=== PATIENT | male | born 1945 | race Caucasian/White ===

== ENCOUNTER 2017-11-29 09:35 | Emergency (ER) | payer OTHER ==
[~2017-11-29] VITALS: Ht 182.9 cm; Wt 116.0 kg
[2017-11-29 09:51] VITALS: BP 127/57; PULSE 54; RESP 18; TEMP 99; O2SAT 96
--- NOTE | 2017-11-29 11:15 | PD ---
HPI Chief Complaint: Edema Time Seen by Provider: 10:41 Travel History International Travel<30 days: No Contact w/Intl Traveler<30days: No Traveled to known affect area: No History of Present Illness HPI 72-year-old man, presents emerged parenchyma of left leg swelling. Started today. Not really tender. He has had trouble with edema in the past. States he was a little bit noncompliant with salt. He does have a history of PE following spine surgery several years ago. No other DVT or PE history. Went to the [place] and got sent to us for further evaluation. Otherwise had been feeling generally well and healthy. No shortness of breath or chest pain. He went to the pool and did a lot of leg exercises yesterday but that is common for him. No injuries. No other complaints. History Past Medical History Narrative Medical Cataracts Depression Sleep apnea CAD Diabetes Obesity Spinal stenosis/cervical spondylosis/osteoarthritis Essential hypertension Dyslipidemia Kidney stones Hearing loss Hypothyroidism History of PE in the past following surgery Chronic pain Social History Tobacco Use: No Review of Systems Except as stated in HPI: all other systems reviewed are Neg Physical Exam Narrative GENERAL: Well-appearing 9-year-old man, no acute distress. SKIN: Focused skin assessment warm/dry. HEAD: Atraumatic. Normocephalic. EYES: Pupils equal and round. No scleral icterus. No injection or drainage. ENT: No nasal bleeding or discharge. Mucous membranes pink and moist. NECK: Trachea midline. No JVD. CARDIOVASCULAR: Regular rate and rhythm. No murmur appreciated. RESPIRATORY: No accessory muscle use. Clear to auscultation. Breath sounds equal bilaterally. GASTROINTESTINAL: Abdomen soft, non-tender, nondistended. Hepatic and splenic margins not palpable. MUSCULOSKELETAL: Asymmetric edema and swelling of the left lower extremity involving the calf and ankle and foot. Sluggish capillary refill bilaterally. Pulses are difficult to palpate bilaterally, but present. There is no real calf tenderness. Knee exams are normal. NEUROLOGICAL: Awake and alert. No obvious cranial nerve deficits. Motor grossly within normal limits. Normal speech. PSYCHIATRIC: Appropriate mood and affect; insight and judgment normal. Data Data Last Documented VS Vital Signs Date Time Temp Pulse Resp B/P (MAP) Pulse Ox O2 Delivery O2 Flow Rate FiO2 11/29/17 11:25 100 Room Air 11/29/17 09:51 99.0 54 18 127/57 (80) Orders Orders Complete Blood Count With Diff (11/29/17 10:50) Comprehensive Metabolic Panel (11/29/17 10:50) Act Partial Throm Time (Ptt) (11/29/17 10:50) Prothrombin Time / Inr (Pt) (11/29/17 10:50) Iv Access Insert/Monitor (11/29/17 10:50) Chest, Pa & Lat (11/29/17 ) Us Leg Venous Doppler (11/29/17 ) Labs Laboratory Tests Test 11/29/17 11:25 White Blood Count 11.4 TH/MM3 Red Blood Count 4.57 MIL/MM3 Hemoglobin 14.1 GM/DL Hematocrit 40.9 % Mean Corpuscular Volume 89.5 FL Mean Corpuscular Hemoglobin 30.7 PG Mean Corpuscular Hemoglobin Concent 34.3 % Red Cell Distribution Width 14.4 % Platelet Count 291 TH/MM3 Mean Platelet Volume 8.8 FL Neutrophils (%) (Auto) 60.9 % Lymphocytes (%) (Auto) 28.5 % Monocytes (%) (Auto) 6.6 % Eosinophils (%) (Auto) 3.3 % Basophils (%) (Auto) 0.7 % Neutrophils # (Auto) 6.9 TH/MM3 Lymphocytes # (Auto) 3.2 TH/MM3 Monocytes # (Auto) 0.7 TH/MM3 Eosinophils # (Auto) 0.4 TH/MM3 Basophils # (Auto) 0.1 TH/MM3 CBC Comment DIFF FINAL Differential Comment Prothrombin Time 10.2 SEC Prothromb Time International Ratio 1.0 RATIO Activated Partial Thromboplast Time 27.8 SEC Blood Urea Nitrogen 18 MG/DL Creatinine 1.12 MG/DL Random Glucose 60 MG/DL Total Protein 7.8 GM/DL Albumin 3.7 GM/DL Calcium Level 9.3 MG/DL Alkaline Phosphatase 126 U/L Aspartate Amino Transf (AST/SGOT) 38 U/L Alanine Aminotransferase (ALT/SGPT) 40 U/L Total Bilirubin 0.5 MG/DL Sodium Level 142 MEQ/L Potassium Level 4.0 MEQ/L Chloride Level 104 MEQ/L Carbon Dioxide Level 29.5 MEQ/L Anion Gap 9 MEQ/L Estimat Glomerular Filtration Rate 65 ML/MIN MDM Medical Decision Making Medical Screen Exam Complete: Yes Emergency Medical Condition: Yes Differential Diagnosis DVT, CHF, leg injury, other Narrative Course Medical decision making INITIAL: Is a 9-year-old male presents emergency department complaining of left lower extremity swelling. Possible DVT. History of PE in the past. Possibly asymmetric edema. He did have vein harvest in that leg for previous bypass. Will check labs, chest x-ray, ultrasound. Umair Jimenez MD November 29, 2017 11:15
--- NOTE | 2017-11-29 11:17 | RADRPT ---
EXAM DATE: 11/29/2017 11:14 AM EDT AGE/SEX: 72 years / Male INDICATIONS: Short of breath. CLINICAL DATA: This is the patient's initial encounter. Patient reports that signs and symptoms have been present for 1 day and indicates a pain score of 0/10. MEDICAL/SURGICAL HISTORY: Hypertension. Diabetes mellitus type II. CABG. COMPARISON: No prior [facility] exams available for comparison. FINDINGS: Postsurgical features of prior median sternotomy. No significant focal pleural or parenchymal opaciti es. Cardiomediastinal contours are within normal limits. Degenerative changes of the thoracic spine. Bony thorax is intact. CONCLUSION: 1. No acute cardiopulmonary disease. Electronically signed by: Gordon Silva MD 11/29/2017 11:16 AM EDT
[2017-11-29 11:55] LABS: AUTOMATED NEUTROPHIL # 6.9 TH/MM3 (1.8-7.7); BASOPHIL # 0.1 TH/MM3 (0-0.2); BASOPHIL % 0.7 % (0.0-2.0); EOSINOPHIL # 0.4 TH/MM3 (0-0.4); EOSINOPHIL % 3.3 % (0.0-4.0); HEMATOCRIT 40.9 % (39.0-51.0); HEMOGLOBIN 14.1 GM/DL (13.0-17.0); LYMPH % 28.5 % (9.0-44.0); LYMPHOCYTE # 3.2 TH/MM3 (1.0-4.8); MEAN CELL VOLUME 89.5 FL (80.0-100.0); MEAN CORPUSCULAR HEMOGLOBIN 30.7 PG (27.0-34.0); MEAN CORPUSCULAR HGB CONC 34.3 % (32.0-36.0); MEAN PLATELET VOLUME 8.8 FL (7.0-11.0); MONO % 6.6 % (0.0-8.0); MONOCYTE # 0.7 TH/MM3 (0-0.9); NEUT % 60.9 % (16.0-70.0); PLATELET COUNT 291 TH/MM3 (150-450); RED BLOOD COUNT 4.57 MIL/MM3 (4.50-5.90); RED CELL DISTRIBUTION WIDTH 14.4 % (11.6-17.2); WHITE BLOOD COUNT 11.4 TH/MM3 (4.0-11.0)
[2017-11-29 12:04] LABS: PROTHROMBIN TIME - PATIENT 10.2 SEC (9.8-11.6)
[2017-11-29 12:16] LABS: ALBUMIN 3.7 GM/DL (3.4-5.0); ALT (GPT) 40 U/L (12-78); AST (GOT) 38 U/L (15-37); BICARBONATE 29.5 MEQ/L (21.0-32.0); BLOOD UREA NITROGEN 18 MG/DL (7-18); CALCIUM 9.3 MG/DL (8.5-10.1); CHLORIDE 104 MEQ/L (98-107); CREATININE 1.12 MG/DL (0.60-1.30); GLOMERULAR FILTRATION RATE 65 ML/MIN (>89); GLUCOSE,RANDOM 60 MG/DL (74-106); SODIUM (NA) 142 MEQ/L (136-145)
[2017-11-29 12:19] LABS: ALKALINE PHOSPHATASE 126 U/L (45-117); TOTAL BILIRUBIN ADULT 0.5 MG/DL (0.2-1.0); TOTAL PROTEIN 7.8 GM/DL (6.4-8.2)
--- NOTE | 2017-11-29 13:40 | RADRPT ---
EXAM DATE: 11/29/2017 1:31 PM EDT AGE/SEX: 72 years / Male INDICATIONS: Left leg swelling. CLINICAL DATA: This is the patient's initial encounter. Patient reports that signs and symptoms have been present for 1 day and indicates a pain score of 0/10. MEDICAL/SURGICAL HISTORY: . Diabetes. None. COMPARISON: No prior [facility] exams available for comparison. TECHNIQUE: Venous ultrasound of both lower extremities was performed from the inguinal ligament to t he proximal calf. Real-time, color Doppler and spectral tracing, compression and augmentation techni ques were used. FINDINGS: There is normal compressibility of the deep venous system from the inguinal region to the proximal ca lf. No echogenic clot is seen in the lumen of the common femoral, femoral, popliteal, and posterior tibial veins. There is a normal response of the venous system to proximal and distal augmentation an d respiration. CONCLUSION: 1. Negative for deep venous thrombosis. Subcutaneous edema in the soft tissues. Electronically signed by: Forest Alcala MD 11/29/2017 1:39 PM EDT
--- NOTE | 2017-11-29 13:44 | PD ---
Data Data Last Documented VS Vital Signs Date Time Temp Pulse Resp B/P (MAP) Pulse Ox O2 Delivery O2 Flow Rate FiO2 11/29/17 11:25 100 Room Air 11/29/17 09:51 99.0 54 18 127/57 (80) Orders Orders Complete Blood Count With Diff (11/29/17 10:50) Comprehensive Metabolic Panel (11/29/17 10:50) Act Partial Throm Time (Ptt) (11/29/17 10:50) Prothrombin Time / Inr (Pt) (11/29/17 10:50) Iv Access Insert/Monitor (11/29/17 10:50) Chest, Pa & Lat (11/29/17 ) Us Leg Venous Doppler (11/29/17 ) Ed Discharge Order (11/29/17 13:44) Labs Laboratory Tests Test 11/29/17 11:25 White Blood Count 11.4 TH/MM3 Red Blood Count 4.57 MIL/MM3 Hemoglobin 14.1 GM/DL Hematocrit 40.9 % Mean Corpuscular Volume 89.5 FL Mean Corpuscular Hemoglobin 30.7 PG Mean Corpuscular Hemoglobin Concent 34.3 % Red Cell Distribution Width 14.4 % Platelet Count 291 TH/MM3 Mean Platelet Volume 8.8 FL Neutrophils (%) (Auto) 60.9 % Lymphocytes (%) (Auto) 28.5 % Monocytes (%) (Auto) 6.6 % Eosinophils (%) (Auto) 3.3 % Basophils (%) (Auto) 0.7 % Neutrophils # (Auto) 6.9 TH/MM3 Lymphocytes # (Auto) 3.2 TH/MM3 Monocytes # (Auto) 0.7 TH/MM3 Eosinophils # (Auto) 0.4 TH/MM3 Basophils # (Auto) 0.1 TH/MM3 CBC Comment DIFF FINAL Differential Comment Prothrombin Time 10.2 SEC Prothromb Time International Ratio 1.0 RATIO Activated Partial Thromboplast Time 27.8 SEC Blood Urea Nitrogen 18 MG/DL Creatinine 1.12 MG/DL Random Glucose 60 MG/DL Total Protein 7.8 GM/DL Albumin 3.7 GM/DL Calcium Level 9.3 MG/DL Alkaline Phosphatase 126 U/L Aspartate Amino Transf (AST/SGOT) 38 U/L Alanine Aminotransferase (ALT/SGPT) 40 U/L Total Bilirubin 0.5 MG/DL Sodium Level 142 MEQ/L Potassium Level 4.0 MEQ/L Chloride Level 104 MEQ/L Carbon Dioxide Level 29.5 MEQ/L Anion Gap 9 MEQ/L Estimat Glomerular Filtration Rate 65 ML/MIN MDM Supervised Visit with [facility]: No Narrative Course Patient CARE assume from Dr. Jimenez at noon. I was asked to follow-up the ultrasound of the patient's leg. There is a patient who has had bypass grafting coronary arteries in the past, vein stripping of the left lower extremity, had some minimal swelling of left lower extremity. DVT ultrasound is negative. Examine him and he has only minimal pitting edema to left lower extremity. Is only slightly increased over the right lower extremity. He is not having any symptoms of CHF. Discussed with him symptomatic management return to ED criteria follow-up with a primary care physician. Discussed a repeat ultrasound in a week if swelling persists. Diagnosis Primary Impression: Pedal edema Additional Instruction: If you still have swelling in a week's time i recommend you have a repeat ultrasound. You can do that in the ER or with your primary care physician. Keep the leg elevated and try ELE hose. Follow up with your primary care physician by phone this week. Disposition: 01 DISCHARGE HOME Condition: Stable Mario Claudio MD November 29, 2017 13:44
== END 2017-11-29 14:11 | disposition home or self-care (01) ==
LOC: NEPD 09:35
DX: R60.0 Localized edema (principal); I10 Essential (primary) hypertension; I25.10 Atherosclerotic heart disease of native coronary artery without angina pectoris; E11.9 Type 2 diabetes mellitus without complications; E03.9 Hypothyroidism, unspecified; E78.5 Hyperlipidemia, unspecified; F32.9 Major depressive disorder, single episode, unspecified; Z86.711 Personal history of pulmonary embolism
CPT/HCPCS: 71046; 80053; 85025; 85610; 85730; 93971